=== PATIENT | female | born 1930 | race Caucasian/White ===

== ENCOUNTER 2016-12-08 12:09 | Inpatient (IN) | payer BC ==
[~2016-12-08] VITALS: Ht 160 cm; Wt 68.0 kg
--- NOTE | 2016-12-08 12:10 | NUR ---
PT BIBA TO BED 5.
[2016-12-08 12:12] VITALS: BP 152/67
--- NOTE | 2016-12-08 12:12 | NUR ---
86F BIBA FROM [facility] C/O SHORTNESS OF BREATH X 0800 THIS MORNING; BL LUNG SOUNDS DIMINISHED, RR LABORED, ACCESSORY MUSCLE USE, TACHYPNEA NOTED AT THIS TIME; PT STATES NO COUGH AT THIS TIME; PT C/O LEFT CHEST PAIN WITH BREATHING, PRESSURE, NON-RADIATING, 4/10 X TODAY; PT AA&OX4, PERRLA, STATES NO N/V/D AT THIS TIME; ABDOMEN SOFT, NON-TENDER, ACTIVE BOWEL SOUNDS X 4 QUADRANTS; PT NOTED W/ BLUEISH DISCOLORATION TO RT WRIST/FOREARM; PT STATES DISCOLORATION FROM RECENT IV INSERTION DURING HOSPITALIZATION LAST WEEK; PT STATES NO PAIN OR DISCOMFORT TO SITE AT THIS TIME.PT PLACED ON MONITOR, RESTING IN BED W/ HOB ELEVATED AND IN LOWEST POSITION; POSITIONED FOR COMFORT; HX: CHF,HTN, DEFIBRILLATOR, HYPONATREMIA, RLS, HYPERLIPIDEMIA; ER MD MADE AWARE OF STATUS. WILL CONTINUE TO MONTIOR. Addendum: 12/08/16 at 1315 by ASYM III REDNESS NOTED TO SACRAL AREA; NO OPEN WOUND AT THIS TIME.
--- NOTE | 2016-12-08 12:22 | NUR ---
ER MD DR. CONTRERAS EVALUATING PT AT BEDSIDE.
[2016-12-08] MEDS ORDERED: [UNRECOGNIZED DRUG - CODE] PO (12:26)
[2016-12-08] MEDS ORDERED: DABI75CA PO (12:26)
[2016-12-08] MEDS ORDERED: LOSA25TA1 PO (12:26)
[2016-12-08] MEDS ORDERED: CARV6.25 PO (12:26)
[2016-12-08] MEDS ORDERED: FURO-572 PO (12:26)
[2016-12-08] MEDS ORDERED: ASCO-166 PO (12:26)
[2016-12-08] MEDS ORDERED: CRAN450T4 PO (12:26)
[2016-12-08] MEDS ORDERED: ACET-2869 PO (12:26)
[2016-12-08] MEDS ORDERED: PRAV20TA2 PO (12:26)
[2016-12-08] MEDS ORDERED: LACT25CA PO (12:26)
[2016-12-08] MEDS ORDERED: SPIR25TA PO (12:26)
[2016-12-08] MEDS ORDERED: ALBUTEROL SULFATE/IPRATROPIU 3 ML SOL IH ONE (12:30)
[2016-12-08] MEDS ORDERED: ALBUTEROL 0.083% 2.5 MG/3 ML NEBU INH ONE (12:30)
--- NOTE | 2016-12-08 12:30 | NUR ---
XRAY AT BEDSIDE.
--- NOTE | 2016-12-08 12:35 | NUR ---
IV 20G TO LEFT HAND CAUGHT ON BED, REMOVED BY PATIENT; Catheter intact and site benign. Applied folded 4x4 gauze and tape to stop bleeding. PT STATES NO PAIN TO SITE AT THIS TIME; WILL CONTINUE TO MONITOR.
--- NOTE | 2016-12-08 12:36 | NUR ---
ADMITTING DX: SOB HX: CHF AWAKE AND ALERT RESPONSIVE TO CALENDER FEEDER IN HFW POSITION PATIENT PRESENTING TO ED WITH INCREASED SOB EDUCATION PROVIDED TO PATIENT WITH ACKNOWLEDGEMENT ON HHN THERAPY AND RESPIRATORY DRUGS HHN THERAPY GIVEN ORDERED ENCOURAGED PATIENT FOR DEEP BREATHING DURING THERAPY TOLERATED PROCEDURE WELL WITHOUT ADVERSE REACTIONS NOTED POST HHN THERAPY PLACED PATIENT ON SUPPLEMENTAL OXYGEN AT 2 LPM VIA NC ZACH/RN NOTIFIED
--- NOTE | 2016-12-08 12:44 | NUR ---
RT AT BEDSIDE.
[2016-12-08 12:55] LABS: HEMATOCRIT 25.1 % (36-48); HEMOGLOBIN 8.1 g/dL (12.0-16.0); MEAN CORPUSCULAR HEMOGLOBIN 29 pg (27-31); MEAN CORPUSCULAR HGB CONC 32 g/dL (33-37); MEAN CORPUSCULAR VOLUME 89 fL (80-94); PLATELET COUNT (AUTO) 302 K/uL (140-450); RED BLOOD CELL COUNT(AUTO) 2.83 MIL/uL (4.20-5.40); RED CELL DISTRIBUTION WIDTH 15.2 % (11.6-13.7); WHITE BLOOD COUNT (AUTO) 9.3 K/uL (4.8-10.8)
[2016-12-08 13:02] LABS: ANION GAP 12.7 (8-16); CARBON DIOXIDE 25.5 mmol/L (21-32); CHLORIDE 95 mmol/L (98-107); CREATININE 1.1 mg/dL (0.6-1.3); GLUCOSE 158 mg/dL (74-106); POTASSIUM 5.2 mmol/L (3.5-5.1); SODIUM SERUM 128 mmol/L (136-145); UREA NITROGEN, BLOOD 10 mg/dL (7-18)
[2016-12-08 13:03] LABS: INR 1.1 (0.8-1.2); PARTIAL THROMBOPLASTIN TIME 29.2 secs (22-35.6)
[2016-12-08 13:08] LABS: NEUTROPHILS % (MANUAL) 73 (43-65)
[2016-12-08 13:09] LABS: ALANINE AMINOTRANSFERASE 25 U/L (14-59); ALBUMIN 3.1 g/dL (3.4-5.0); ALKALINE PHOSPHATASE 68 U/L (46-116); ASPARTATE AMINOTRANSFERASE 29 U/L (15-37); BAND % (MANUAL) 7 % (0-8); LYMPHOCYTES % (MANUAL) 16 % (20-46); MONOCYTES % (MANUAL) 4 % (5-12); PLATELET ESTIMATE ADEQUATE; TOTAL BILIRUBIN 0.4 mg/dL (0.0-1.0); TOTAL PROTEIN, SERUM 6.8 g/dL (6.4-8.2)
[2016-12-08 13:22] LABS: LACTIC ACID 1.1 mmol/L (0.4-2.0)
--- NOTE | 2016-12-08 13:31 | NUR ---
# 16 FR Chahal catheter with 10 ml utilizing sterile technique. Immediate return of 400 ml OF YELLOW urine noted. Bedside drainage bag placed below level of bladder. Urine sample collected and sent to lab. Pt tolerated procedure WELL.
[2016-12-08] MEDS ORDERED: AZITHROMYCIN 500 MG in DEXTROSE 5% 250 ML IV ONE (13:40)
[2016-12-08] MEDS ORDERED: NACL 0.9% 1,000 ML IV ONE (13:45)
[2016-12-08] MEDS ORDERED: cefTRIAXone 1,000 MG VIAL ONE (13:52)
[2016-12-08 13:53] LABS: APPEARANCE,URINE CLEAR (CLEAR); BILIRUBIN,URINE NEGATIVE (NEGATIVE); BLOOD, URINE 1+ (NEGATIVE); COLOR,URINE YELLOW (YELLOW); LEUKOCYTE ESTERASE ,URINE NEGATIVE (NEGATIVE); NITRITE, URINE NEGATIVE (NEGATIVE); PROTEIN,URINE NEGATIVE (NEGATIVE); UGLUCOSE NEGATIVE (NEGATIVE); UROBILINOGEN,URINE 0.2 EU/dL (0.2 - 1)
[2016-12-08] MEDS ORDERED: AZITHROMYCIN 500 MG INJ VIAL IV ONE (13:53)
[2016-12-08 14:08] LABS: BACTERIA,URINE RARE /HPF (None Seen); RBC,URINE 0-5 (RARE) /HPF (0-5); SQUAMOUS EPITHELIAL CELL,UR None Seen /LPF (0-3 (FEW)); WBC,URINE 0-5 (RARE) /HPF (0-5)
--- NOTE | 2016-12-08 15:18 | NUR ---
CALLED TO GIVE REPORT TO DAWNA NAVARRO; RN DISCHARGING PT AT THIS TIME AND WILL CALL BACK FOR REPORT.
--- NOTE | 2016-12-08 15:30 | NUR ---
REPORT GIVEN TO DAWNA NAVARRO.
--- NOTE | 2016-12-08 15:50 | NUR ---
Patient will be admitted to care of DR. ROGERS. Admited to TELEMETRY. Will go to room 122A. Belongings list completed. Report to DAWNA NAVARRO.
[2016-12-08] MEDS ORDERED: ACETAMINOPHEN 325 MG TAB PO PRN (15:55)
[2016-12-08] MEDS ORDERED: ONDANSETRON 4 MG/2 ML VIAL IVP PRN (15:55)
[2016-12-08] MEDS ORDERED: LORazepam 2 MG/ML VIAL IVP PRN (15:55)
[2016-12-08] MEDS ORDERED: HYDROcodone/APAP 5/325 MG 1 TAB TAB PO PRN (15:55)
[2016-12-08 16:00] VITALS: BP 100/59
--- NOTE | 2016-12-08 16:00 | NUR ---
PT ARRIVED ON THE UNIT WITH 2 ER NURSES. PT IS NAUSEATED AND IS VOMITING. CALLED DR. ROGERS AND REQUESTED ZOFRAN. PT IS AWAKE AND ORIENTED X 4. PT SKIN IS INTACT. NO WOUNDS NOTED. R ARM BRUISE FROM PREVIOUS IV SITE FROM PREVIOUS HOSPITALIZATION. NO REDNESS TO THE SACRUM. PT ON 2 L O2 VIA NC. IV L HAND 20G SL. ADDISON CATH IN PLACE. CLEAR, YELLOW URINE 500ML IN ADDISON BAG. MRSA SCREENING DONE. V/S WITHIN NORMAL RANGE. WILL CONTINUE WITH ADMISSION PROCESS.
--- NOTE | 2016-12-08 17:50 | NUR ---
CALLED [facility] AND NOTIFIED THEM THAT PT HAD LEFT HER BOTTOM DENTURES AND GLASSES THERE. PER CHARGE NURSE, FAMILY WILL BE PICKING THEM UP TOMORROW. NOTIFIED PT.
--- NOTE | 2016-12-08 19:15 | NUR ---
ENDORSED PT TO THE CITY MAINTENANCE MANAGER NURSE AT BEDSIDE FOR CONTINUITY OF CARE. PT IS IN STABLE CONDITION.
[2016-12-08 20:00] VITALS: BP 112/52
--- NOTE | 2016-12-08 20:00 | NUR ---
SEEN PT AWAKE, ALERT AND ORIENTED. INITIAL ASSESSMENT DONE. PT DENIES ANY PAIN OR SOB. VITAL SIGNS CHECKED AND WNL. PT WANTS TO USE POTTY CHAIR. OFFERED BEDPAN BUT PT REFUSED. ASKED PT IF SHE'S ABLE TO STAND AND PT SAID "YES". WILL GET POTTY CHAIR. SAFETY ENSURED. CALL LIGHT W/IN REACH.
--- NOTE | 2016-12-08 20:24 | NUR ---
SEEN PT APPEARS ASLEEP BUT AROUSABLE. INFORMED PT THAT SHE CAN HAVE SLEEPING PILL AROUND 9PM. PT VERBALIZED UNDERSTANDING AND SAID, "YES THEY ALREADY TOLD ME." HOB ELEVATED. PO MEDICATION GIVE W/ TEACHINGS. PT AWARE OF HER PILLS. PT TOLERATED MEDICATIONS WELL. PT DENIES ANY OTHER NEEDS. HOB LOWERED. WILL CONTINUE TO MONITOR.
[2016-12-08] MEDS: DABIGATRAN ETEXILATE MESYLAT 75 MG CAP PO SCH (20:25)
[2016-12-08] MEDS ORDERED: CARVEDILOL 6.25 MG TAB PO SCH (21:00)
--- NOTE | 2016-12-08 21:03 | NUR ---
PT CALLED ASKING IF HER ADDISON CAN BE TAKEN OUT AND ALSO HER SLEEPING PILL. WILL NOTIFY
[2016-12-09] VITALS: BP 121/56
--- NOTE | 2016-12-09 00:10 | NUR ---
SEEN PT ASLEEP BUT EASILY AROUSABLE. VITAL SIGNS CHECKED. NO DISCOMFORT NOTED. BED ALARM TURNED ON.
[2016-12-09 04:00] VITALS: BP 123/67
--- NOTE | 2016-12-09 04:00 | NUR ---
PT'S BED ALARM BEEP. SEEN PT AWAKE ON THE EDGE OF THE BED. PT SAID SHE WANTS TO URINATE. PT ASSISTED TO THE BEDSIDE COMMODE W/O DIFFICULTY. PT SAT ON THE COMMODE FOR A WHILE AND SAID SHE CAN'T URINATE. PT ASSISTED BACK TO BED AND INFORMED HER BLADDER SCAN WILL BE PERFORMED. PT AGREEABLE.
--- NOTE | 2016-12-09 04:03 | NUR ---
BLADDER SCAN PERFORMED. PT HAS LESS THAN 200ML OF URINE. PRINTED 136ML. INFORMED PT THAT SHE HAS TO URINATE IN 2 HRS. PT VERBALIZED UNDERSTANDING.
--- NOTE | 2016-12-09 04:30 | NUR ---
PT'S BED ALARMED. RITA BREWSTER CAME TO SEE PT. PT GOT UP TO THE BEDSIDE COMMODE. PER RITA BREWSTER PT HAD URINE MIXED W/ STOOL. PT GIVEN WARM BLANKET PER REQUEST. WILL CONTINUE TO MONITOR.
--- NOTE | 2016-12-09 05:30 | NUR ---
SAT TUTOR SAID PT COMPLAINING OF SHORTNESS OF BREATH. PT' S NASAL CANNULA FIXED. PAGED RT AND SPOKE TO DARSHANA AND SAID SHE'S COMING.
[2016-12-09] MEDS: ALBUTEROL 0.083% 2.5 MG/3 ML NEBU IH PRN (05:38)
[2016-12-09 06:12] LABS: MEAN CORPUSCULAR HEMOGLOBIN 29 pg (27-31); MEAN CORPUSCULAR HGB CONC 32 g/dL (33-37); MEAN CORPUSCULAR VOLUME 91 fL (80-94); PLATELET COUNT (AUTO) 205 K/uL (140-450); RED BLOOD CELL COUNT(AUTO) 2.28 MIL/uL (4.20-5.40); RED CELL DISTRIBUTION WIDTH 15.1 % (11.6-13.7); WHITE BLOOD COUNT (AUTO) 5.4 K/uL (4.8-10.8)
[2016-12-09 06:31] LABS: HEMATOCRIT 20.8 % (36-48); HEMOGLOBIN 6.7 g/dL (12.0-16.0)
--- NOTE | 2016-12-09 06:31 | NUR ---
SPOKE TO AUGUSTA FROM THE LAB REGARDING PT'S HGB RESULT=6.7 HCT=20.8. WILL NOTIFY
--- NOTE | 2016-12-09 06:38 | NUR ---
PAGED DR SIMONS COVERING FOR DR ROGERS. WILL AWAIT FOR CALL BACK.
[2016-12-09 06:39] LABS: EOSINOPHILS % (MANUAL) 3 % (0-4); LYMPHOCYTES % (MANUAL) 19 % (20-46); MONOCYTES % (MANUAL) 15 % (5-12); NEUTROPHILS % (MANUAL) 63 (43-65)
--- NOTE | 2016-12-09 06:56 | NUR ---
NO CALL BACK FROM DR SIMONS. PAGED HER AGAIN AND I WAS CONNECTED. INFORMED DR SIMONS THAT PT'S HGB IS 6.7 SHE SAID TO REPEAT H&H AT 0800.
[2016-12-09 07:11] LABS: ANION GAP 9.7 (8-16); CALCIUM 7.9 mg/dL (8.5-10.1); CARBON DIOXIDE 26.6 mmol/L (21-32); CHLORIDE 98 mmol/L (98-107); GLUCOSE 94 mg/dL (74-106); POTASSIUM 4.3 mmol/L (3.5-5.1); SODIUM SERUM 130 mmol/L (136-145)
[2016-12-09 07:12] LABS: ALANINE AMINOTRANSFERASE 19 U/L (14-59); ALBUMIN 2.7 g/dL (3.4-5.0); ALKALINE PHOSPHATASE 55 U/L (46-116); ASPARTATE AMINOTRANSFERASE 22 U/L (15-37); MAGNESIUM 1.7 mg/dL (1.8-2.4); TOTAL BILIRUBIN 0.4 mg/dL (0.0-1.0); TOTAL PROTEIN, SERUM 5.9 g/dL (6.4-8.2); UREA NITROGEN, BLOOD 9 mg/dL (7-18)
--- NOTE | 2016-12-09 07:25 | NUR ---
RECEIVED REPORT FROM NIGHT NURSE, PT IS AAOX4, ON O2 2L VIA NC, IV TO LEFT HAND 20G SALINE LOCK, SKIN INTACT, INITIAL ASSESSMENT COMPLETED, REVIEWED PLAN OF CARE WITH PT, PT VERBALIZED UNDERSTANDING. ALL SAFETY PRECAUTIONS MET. ALL NEEDS MET. CALL LIGHT WITHIN REACH. WILL CONTINUE TO MONITOR.
[2016-12-09 08:00] VITALS: BP 123/60
[2016-12-09] MEDS ORDERED: CARVEDILOL 6.25 MG TAB PO SCH (08:18)
[2016-12-09] MEDS: LOSARTAN 25 MG TAB PO SCH (08:40)
[2016-12-09] MEDS: FUROSEMIDE 40 MG/4 ML VIAL IVP SCH (08:40)
--- NOTE | 2016-12-09 08:44 | NUR ---
DUE MEDICATION GIVEN, PT TOLERATED WELL. FAMILY AT BED SIDE. WILL CONTINUE TO MONITOR.
[2016-12-09] MEDS: DABIGATRAN ETEXILATE MESYLAT 75 MG CAP PO SCH (09:00)
--- NOTE | 2016-12-09 09:00 | NUR ---
PRADAXA NOT GIVEN LOW H/H, AWARE.
[2016-12-09 09:12] LABS: HEMATOCRIT 20.9 % (36-48)
[2016-12-09 09:13] LABS: HEMOGLOBIN 6.6 g/dL (12.0-16.0)
--- NOTE | 2016-12-09 09:20 | NUR ---
PATIENT HAS BEEN SCREENED AND CATEGORIZED MODERATE NUTRITION RISK. PATIENT WILL BE SEEN WITHIN 3-5 DAYS OF ADMISSION. 12/11/16-12/13/[address]
[2016-12-09] MEDS: MAG SULF 2000 MG/WATER PREMIX 100 ML IV SCH (09:23)
[2016-12-09 12:00] VITALS: BP 111/63
[2016-12-09] MEDS ORDERED: AZITHROMYCIN 500 MG in DEXTROSE 5% 250 ML IV SCH (13:00)
--- NOTE | 2016-12-09 13:00 | NUR ---
FIRST UNIT OF RBC. STARTED. NO S/S OF REACTION NOTED. WILL CONTINUE TO MONITOR.
--- NOTE | 2016-12-09 14:09 | NUR ---
CM NOTE INITIAL REVIEW FAXED TO [facility] / FAX# [phone], ATTN: DAPHNE #[phone]
--- NOTE | 2016-12-09 14:26 | NUR ---
CHECKED IN ON PT, NO S/S OF REACTION NOTED. PT AWAKE, ALL NEEDS MET, CALL LIGHT WITHIN RAECH. WILL CONTINUE TO MONITOR.
[2016-12-09 16:00] VITALS: BP 117/72
[2016-12-09 16:25] LABS: THYROID STIMULATING HORMONE 3.17 uIU/mL (0.34-3.74)
[2016-12-09] MEDS: CARVEDILOL 6.25 MG TAB PO SCH (16:45)
[2016-12-09] MEDS: FERROUS SULFATE 325 MG TABEC PO SCH (16:49)
--- NOTE | 2016-12-09 16:52 | NUR ---
DUE MEDICATIONS GIVEN, FIRST UNIT OF RBC COMPLETED, ALL NEEDS MET. WILL CONTINUE TO MONITOR.
--- NOTE | 2016-12-09 18:00 | NUR ---
SECOND UNIT OF RBC STARTED, NO S/S OF REACTION NOTED. WILL CONTINUE TO MONITOR.
--- NOTE | 2016-12-09 19:24 | NUR ---
ENDORSED PLAN OF CARE TO NIGHT NURSE, PT IN STABLE CONDITION.
--- NOTE | 2016-12-09 19:30 | NUR ---
RECEIVED REPORTS FROM DAY RN. PATIENT RESTING IN BED, ALERT AWAKE ORIENTED X4, BLOOD INFUSING AT 80ML/HR. S/S OF ACUTE DISTRESS NOTED, PATIENT DENIES PAIN OR DISCOMFORT AT THIS TIME. CALL LIGHT WITHIN REACH, SAFETY MEASURE ENSURED, WILL CONTINUE TO MONITOR.
--- NOTE | 2016-12-09 19:45 | NUR ---
VITAL SIGNS TAKEN SCHEDULED FOR BLOOD TRANSFUSION, T 98.1, HR 87, BP 123/66, RR 19, O2SAT 99%, O2 NC 2L, PATIENT DENIES PAIN, WILL CONTINUE TO MONITOR.
[2016-12-09 20:00] VITALS: BP 123/66
[2016-12-09] MEDS: LACTULOSE 20 GM/30 ML UDC PO SCH (20:46)
[2016-12-09] MEDS ORDERED: ZOLPIDEM 5 MG TAB PO PRN (21:30)
--- NOTE | 2016-12-09 21:40 | NUR ---
PATIENT REQUESTED SLEEPING MEDICATION, MADE DR. PENNINGTON AWARE. RECEIVED ORDER 5MG AMBIEN QHS PRN. ALSO CONFIRMED WITH DR. SIMONS THAT PATIENT HAS ORDERS FOR 2 UNITS OF PLT AND 2 UNITS OF PLASMA, AND PATIENT PLT 205. DR. PENNINGTON SAYS OKAY TO FOLLOW THE ORDERS.
--- NOTE | 2016-12-09 21:45 | NUR ---
SECOND PRBC FINISHED, VITAL SIGNS T 98, BP134/69, HR90, RR 17, O2SAT 99%. WILL CONTINUE TO MONITOR
--- NOTE | 2016-12-09 22:23 | NUR ---
TALKED WITH DR. SHIN. Colindres AND WANTED TO CLEAR THE ORDERS OF 2 UNITS OF PLT, 2 UNITS OF PLASMA, MADE HER AWARE THAT PATIENT RECEIVED 2 UNITS OF PRBC ALREADY, PATIENT PLT 205, HAS HX OF CHF. I ASKED IF SHE COULD ASK DR. ROGERS TO CALL ME BACK AND CLEAR THE ORDERS. DR. SHIN. Colindres SAID NO AND SHE WANTED ME TO FOLLOW THE CURRENT ORDERS. MADE CHARGE NURSE AWARE. Addendum: 12/09/16 at 4368 by Jayson Walton RN WANT TO CLARIFY, NOT CLEAR
--- NOTE | 2016-12-09 22:55 | NUR ---
CHARGE NURSE AND RN BATCH WEIGHER KATHI OH INSTRUCTED ME TO HOLD ORDERS OF 2 UNITS PLT, AND 2 UNITS PLASMA.
[2016-12-10] VITALS: BP 136/71
[2016-12-10] LABS: BASOPHILS # (AUTO) 0.2 K/uL (0.00-0.22); BASOPHILS % (AUTO) 3.4 % (0.0-2.0); EOSINOPHILS # (AUTO) 0.1 K/uL (0-0.4); EOSINOPHILS % (AUTO) 1.9 % (0.0-4.0); HEMATOCRIT 28.2 % (36-48); HEMOGLOBIN 9.1 g/dL (12.0-16.0); LYMPHOCYTES # (AUTO) 0.9 K/uL (2.5-16.5); LYMPHOCYTES % (AUTO) 15.1 % (20.5-51.1); MEAN CORPUSCULAR HEMOGLOBIN 29 pg (27-31); MEAN CORPUSCULAR HGB CONC 32 g/dL (33-37); MEAN CORPUSCULAR VOLUME 91 fL (80-94); MONOCYTES # (AUTO) 0.7 K/uL (0.8-1.0); MONOCYTES % (AUTO) 11.4 % (1.7-9.3); NEUTROPHILS % (AUTO) 68.2 % (42.2-75.2); PLATELET COUNT (AUTO) 216 K/uL (140-450); RED CELL DISTRIBUTION WIDTH 14.6 % (11.6-13.7); WHITE BLOOD COUNT (AUTO) 5.9 K/uL (4.8-10.8)
--- NOTE | 2016-12-10 00:10 | NUR ---
PATIENT RESTING IN BED, EASY TO AROUSE. NO S/S OF ACUTE DISTRESS NOTED, RESPIRATION EVEN AND UNLABORED. CALL LIGHT WITHIN REACH, SAFETY MEASURE ENSURED, WILL CONTINUE TO MONITOR.
--- NOTE | 2016-12-10 02:33 | NUR ---
PATIENT RESTING IN BED, NO S/S OF ACUTE DISTRESS NOTED, SAFETY MEASURE ENSURED, WILL CONTINUE TO MONITOR
[2016-12-10 04:00] VITALS: BP 123/71
--- NOTE | 2016-12-10 04:15 | NUR ---
PATIENT RESTING IN BED, VITAL SIGNS TAKEN, WITHIN NORMAL RANGE. NOTED IV ON THE RT FOREARM WAS TAKEN OUT, NO BLEEDING NOTED, TIP INTACT. IV ON LT AC STILL INFUSING WELL. NO S/S OF ACUTE DISTRESS NOTED. CALL LIGHT WITHIN REACH SAFETY MEASURE ENSURED, WILL CONTINUE TO MONITOR.
[2016-12-10 05:56] LABS: BASOPHILS # (AUTO) 0.1 K/uL (0.00-0.22); BASOPHILS % (AUTO) 1.3 % (0.0-2.0); EOSINOPHILS # (AUTO) 0.1 K/uL (0-0.4); EOSINOPHILS % (AUTO) 1.3 % (0.0-4.0); HEMATOCRIT 29.6 % (36-48); HEMOGLOBIN 9.6 g/dL (12.0-16.0); LYMPHOCYTES # (AUTO) 1.2 K/uL (2.5-16.5); LYMPHOCYTES % (AUTO) 16.6 % (20.5-51.1); MEAN CORPUSCULAR HEMOGLOBIN 29 pg (27-31); MEAN CORPUSCULAR HGB CONC 32 g/dL (33-37); MEAN CORPUSCULAR VOLUME 90 fL (80-94); MONOCYTES # (AUTO) 0.6 K/uL (0.8-1.0); MONOCYTES % (AUTO) 8.8 % (1.7-9.3); NEUTROPHILS # (AUTO) 5.1 K/uL (1.8-7.7); PLATELET COUNT (AUTO) 230 K/uL (140-450); RED CELL DISTRIBUTION WIDTH 15.3 % (11.6-13.7); WHITE BLOOD COUNT (AUTO) 7.1 K/uL (4.8-10.8)
[2016-12-10 06:02] LABS: CALCIUM 8.2 mg/dL (8.5-10.1); CARBON DIOXIDE 25.4 mmol/L (21-32); CHLORIDE 94 mmol/L (98-107); CREATININE 1.1 mg/dL (0.6-1.3); GLUCOSE 97 mg/dL (74-106); POTASSIUM 4.4 mmol/L (3.5-5.1); SODIUM SERUM 127 mmol/L (136-145); UREA NITROGEN, BLOOD 12 mg/dL (7-18)
--- NOTE | 2016-12-10 07:10 | NUR ---
RECEIVED REPORT FROM NIGHT NURSE, PT IS AAOX3 EPISODES OF CONFUSION, PT STATES SHE WANTS TO GO HOME. ON O2 2L VIA NC, IV TO LEFT AC 20G SL PATENT AND INTACT. SKIN INTACT, INITIAL ASSESSMENT COMPLETED, REVIEWED PLAN OF CARE WITH PT, PT VERBALIZED UNDERSTANDING. ALL SAFETY PRECAUTIONS MET. ALL NEEDS MET. CALL LIGHT WITHIN REACH. WILL CONTINUE TO MONITOR.
--- NOTE | 2016-12-10 07:10 | NUR ---
ENDORSED PLAN OF CARE TO DAY RN. PATIENT IS RESTING IN BED AND IN STABLE CONDITION.
[2016-12-10] MEDS: ALBUTEROL 0.083% 2.5 MG/3 ML NEBU IH PRN (07:50)
[2016-12-10 07:55] VITALS: BP 138/75
[2016-12-10] MEDS: CARVEDILOL 6.25 MG TAB PO SCH ×2 (08:00→16:41)
[2016-12-10] MEDS: FERROUS SULFATE 325 MG TABEC PO SCH ×3 (08:00→16:44)
[2016-12-10] MEDS: LACTULOSE 20 GM/30 ML UDC PO SCH (08:20)
[2016-12-10] MEDS: LOSARTAN 25 MG TAB PO SCH (08:20)
[2016-12-10] MEDS ORDERED: PANTOPRAZOLE 40 MG INJ VIAL IVP SCH (09:00)
[2016-12-10] MEDS: FUROSEMIDE 40 MG/4 ML VIAL IVP SCH (09:04)
--- NOTE | 2016-12-10 09:04 | NUR ---
IV MEDICATIONS GIVEN, PO NOT GIVEN PT CURRENTLY NPO FOR PROCEDURE. ALL NEEDS MET. WILL CONTINUE TO MONITOR.
[2016-12-10] MEDS: MAG SULF 2000 MG/WATER PREMIX 100 ML IV SCH (09:23)
--- NOTE | 2016-12-10 09:44 | NUR ---
FA[place]ED [place] [facility] [phone] PHONE DAPHNE [phone]
--- NOTE | 2016-12-10 10:25 | NUR ---
ASSISTED PT TO COMMODE AND BACK TO BED, ALL NEEDS MET. CALL LIGHT WITHIN REACH. WILL CONTINUE TO MONITOR.
--- NOTE | 2016-12-10 11:45 | NUR ---
PT LRFT UNIT TO OR IN STABLE CONDITION
[2016-12-10] MEDS ORDERED: MIDAZOLAM 2 MG/2 ML VIAL ONE (11:47)
[2016-12-10] MEDS ORDERED: diphenhydrAMINE 50 MG/ML VIAL ONE (11:47)
[2016-12-10 12:00] VITALS: BP 125/79
[2016-12-10] MEDS: MIDAZOLAM 2 MG/2 ML VIAL ONE ×2 (12:14→12:18)
[2016-12-10] MEDS: fentaNYL 0.05 MG/ML VIAL ONE ×2 (12:18→12:24)
--- NOTE | 2016-12-10 12:47 | NUR ---
PT RETURNED TO ROOM FROM OR. PT IN STABLE CONDITION VS TEMP 97.6, BP 115/57, HR 74, PULSE OX 95% ON O2 2L VIA NC. CALL LIGHT WITHIN REACH. WILL CONTINUE TO MONITOR.
--- NOTE | 2016-12-10 13:04 | NUR ---
SPOKE WITH DAPHNE FROM [facility]. SHE SAID IF PATIENT IS DISCHARGED OVER THE WEEKEND, [place] CAN [place] [facility] [place] [facility] [place] [id number]. I CALLED EVIE [place] [facility] [place] TOLD HER NO DISCHARGE YET, BUT I GAVE HER THE AUTH GIVEN TO ME BY DAPHNE. DAPHNE ALSO SAID THAT SINCE THIS PATIENT IS A BLUE SHIELD, FOR TRANSPORT [employer] NEEDED TO BE CALLED FOR TRANSPORT. PHONE [phone]. NO AUTH NEEDED.
--- NOTE | 2016-12-10 15:55 | NUR ---
PT PULLED OUT IV, PT STATES SHE DOESN'T NEED IT ANYMORE. WILL ATTEMPT TO INSERT NEW IV. PT CLEANED UP AND PUT BACK TO BED.
[2016-12-10 16:00] VITALS: BP 114/64
[2016-12-10] MEDS ORDERED: FERR325E14 PO (16:11)
[2016-12-10] MEDS ORDERED: PANT40EC PO (16:11)
[2016-12-10] MEDS ORDERED: MIRABULK PO (16:11)
--- NOTE | 2016-12-10 16:44 | NUR ---
DUE MEDICATIONS GIVEN, PT TOLERATED WELL, UPDATED PT ON DISCHARGE PLAN, PT VERBALIZED UNDERSTANDING. ALL NEEDS MET. WILL CONTINUE TO MONITOR.
--- NOTE | 2016-12-10 16:52 | NUR ---
REMOVED PT FROM O2, PT CURRENTLY ON ROOM PULSE OX AT 99%, WILL CONTINUE TO MONITOR.
--- NOTE | 2016-12-10 18:26 | NUR ---
PT SIGNED ALL DISCHARGE PAPER WORK. AWAITING FOR TO PICK HER UP.
--- NOTE | 2016-12-10 18:52 | NUR ---
PT WAS WHEELED OT TO FRONT LOBBY IN STABLE CONDITION. ARM BANDS REMOVED, ALL PERSONAL BELONGINGS WITH PT
--- NOTE | 2016-12-11 12:50 | NUR ---
Social Service Note: I called shoe caser Candace from [facility] [place] , no answer, left message regarding MD's home health order. I faxed home health order to [facility] [place]. Addendum: 12/11/16 at 1255 by Xochitl Bailon SS Per Ning from [facility] , they do not have a contract with [facility] [place], unable to accept patient.
--- NOTE | 2016-12-13 11:24 | NUR ---
CALLED DAPHNE PASCAL FROM [facility] [facility] [place] ABOUT HOME HEALTH. SHE CALLED ME BACK AND SAID HOME HEALTH WILL BE WITH [facility] [phone]. SHE SAID THEY WILL START TOMORROW ON 12/14. THE HOME HEALTH WILL CONTACT THE PATIENT.
== END 2016-12-10 18:55 | disposition home health service (06) | DRG 377 ==
LOC: MED 12:09 → INTOOBSV 15:59 → MTU 15:59 → OBSVTOIN 15:59
PROVIDERS: ADMIT Hospitalist; ATTEND Hospitalist
PROC: 30233N1 Transfusion of Nonautologous Red Blood Cells into Peripheral Vein, Percutaneous Approach (ICD-10-PCS; principal; 2016-12-09)
PROC: 0DB68ZX Excision of Stomach, Via Natural or Artificial Opening Endoscopic, Diagnostic (ICD-10-PCS; 2016-12-10)
DX: K92.2 Gastrointestinal hemorrhage, unspecified (principal); J18.9 Pneumonia, unspecified organism; E87.1 Hypo-osmolality and hyponatremia; I11.0 Hypertensive heart disease with heart failure; I50.9 Heart failure, unspecified; D64.9 Anemia, unspecified; I48.2 Chronic atrial fibrillation; K21.9 Gastro-esophageal reflux disease without esophagitis; K44.9 Diaphragmatic hernia without obstruction or gangrene; Z88.8 Allergy status to other drugs, medicaments and biological substances; Z91.041 Radiographic dye allergy status; Z79.01 Long term (current) use of anticoagulants; Z79.899 Other long term (current) drug therapy; Z95.810 Presence of automatic (implantable) cardiac defibrillator
CPT/HCPCS: 36415; 43239; 51702; 71010; 80048; 80053; 81001; 82550; 82553; 82728; 83540; 83605; 83735; 83874; 83880; 84443; 84484; 85018; 85025; 85610; 85730; 86677; 86886; 86900; 86901; 86920; 87040; 87081; 87086; 93005; 94640; 94760; 96365; 96367; 99285; C9113; G0378; J0456; J0696; J1940; J2060; J2250; J3010; J3475; J7030; J7060; J7613; J7620; P9016; Q0092; J1200